=== PATIENT | male | born 1975 | race Caucasian/White ===

== ENCOUNTER 2018-09-29 14:13 | Emergency (ER) | payer BC ==
[2018-09-29 15:21] LABS: #Basophils 0.1 thou/uL (0.0-0.2); #Lymphocytes 1.2 thou/uL (1.20-3.40); #Monocytes 0.7 thou/uL (0.11-0.59); #Neutrophils 5.4 thou/uL (1.40-6.50); %Basophils 0.8 % (0.0-1.0); %Eosinophils 0.6 % (0.0-10.0); %Lymphocytes 16.3 % (21.0-51.0); %Neutrophils 72.3 % (42.0-75.0); Hemoglobin 14.6 g/dL (14.0-18.0); Mean Corpuscular HGB CONC 31.7 g/dL (32.0-36.0); Mean Corpuscular Hemoglobin 29.1 pg (27.0-31.0); Mean Corpuscular Volume 91.8 fL (78.0-98.0); Mean Platelet Volume 7.1 fL (7.4-10.4); Platelet Count 220 thou/uL (130-400); RBC Distribution Width 12.5 % (11.5-14.5); Red Blood Cell (RBC) Count 5.01 mill/uL (4.70-6.10); White Blood Cell (WBC) Count 7.4 thou/uL (4.8-10.8)
[2018-09-29 15:21] LABS: Bilirubin Negative (Negative); Blood, Urine Negative (Negative); Clarity Clear (Clear); Glucose, Urine (Dipstick) Negative (Negative); Leukocyte Negative (Negative); Nitrite Negative (Negative); Protein, Urine (Dipstick) Negative (Neg-Trace); Urobilinogen 0.2 mg/dL (0.2-1.0)
[2018-09-29 15:25] LABS: Specific Gravity, Urine 1.004 (1.002-1.036)
[2018-09-29 15:30] LABS: PTT 25.2 SEC (22.9-36.1); Prothrombin Time 13.4 SEC (12.0-14.7)
[2018-09-29 15:39] LABS: ALT (SGPT) 1648 U/L (8-55); AST (SGOT) 470 U/L (5-34); Albumin 4.5 g/dL (3.5-5.0); Alkaline Phosphatase 111 U/L (40-150); Anion Gap 15 mmol/L (10-20); BUN (Urea Nitrogen) 9 mg/dL (8.9-20.6); Bilirubin, Total 4.6 mg/dL (0.2-1.2); Calc. Creatinine Clearance 0 mL/min (70-130); Calcium 9.9 mg/dL (7.8-10.44); Carbon Dioxide 25 mmol/L (22-29); Chloride 103 mmol/L (98-107); Estimated GFR-MDRD 86; Globulin 2.7 g/dL (2.4-3.5); Glucose 108 mg/dL (70-105); Potassium 4.1 mmol/L (3.5-5.1); Protein, Total 7.2 g/dL (6.0-8.3); Sodium 139 mmol/L (136-145)
--- NOTE | 2018-09-29 15:58 | ULT ---
RIGHT UPPER QUADRANT ULTRASOUND: Date: 09/29/18 INDICATION: Abdominal and epigastric pain with elevated liver function tests. FINDINGS: The patient is post cholecystectomy. The common duct is normal caliber, measured at 2.0 mm. The liver is mildly echogenic, suggesting mild fatty infiltration. No focal liver mass lesion identified. Panc reas is obscured. The right kidney appears unremarkable. IMPRESSION: Post cholecystectomy. No acute findings. POS: [facility]
[2018-09-29 16:45] LABS: HBCM Index 0.06 S/CO (0-0.79); Hep A IgM AB Non-Reactive (NonReactive); Hep A IgM S/CO 0.13 S/CO (0-0.79); Hep B Surf Ag Non-Reactive S/CO (NonReactive); Hep C IgG Ab Non-Reactive (NonReactive); Hep C Index 0.14 S/CO (0-0.79); Hepatitis B Core IgM Abs Non-Reactive (NonReactive)
[2018-09-29 17:50] LABS: Follow-up Chemistry Comp? YES; Follow-up Result - Chemistry REPORT FAXED
== END 2018-09-29 16:35 | disposition home or self-care (01) ==
LOC: SCSER 14:13
DX: R74.8 Abnormal levels of other serum enzymes (principal)
CPT/HCPCS: 76705; 80053; 80074; 81003; 85025; 85610; 85730

== ENCOUNTER 2018-10-01 10:43 | Outpatient (CLI) | payer BC ==
--- NOTE | 2018-10-01 12:12 | ULT ---
FAbdominal ultrasound: 10/01/2018 COMPARISON: Right upper quadrant ultrasound 09/29/2018 HISTORY: Abdominal pain TECHNIQUE: Multiplanar grayscale sonographic imaging of the abdomen provided. FINDINGS: The pancreas is not well seen secondary to bowel gas. The imaged IVC and aorta appear gross ly unremarkable. The hepatic parenchyma is heterogeneous and echogenic, suggesting possible steatosis. The gallbladder is surgically absent. The director social reports a negative Alfredo's sign. The common bile duct measure s 4 mm, within normal limits. Right kidney measures 10.8 cm in craniocaudal dimension and demonstrates no evidence for stone, hydro nephrosis, or mass lesion. Left kidney measures 10.6 cm in craniocaudal dimension and demonstrates no evidence for stone, hydron ephrosis, or mass lesion. Spleen measures up to 9.8 cm, within normal limits. IMPRESSION: No acute findings.
== END 2018-10-01 10:44 | disposition home or self-care (01) ==
LOC: SCSULT 10:43
PROVIDERS: ATTEND Family Medicine
DX: R10.13 Epigastric pain (principal)
CPT/HCPCS: 76700

== ENCOUNTER 2019-04-04 16:00 | Outpatient (CLI) | payer BC | END 2019-04-04 16:01 | disposition home or self-care (01) | LOC: SLEEPLAB 16:00 | PROVIDERS: ATTEND Family Medicine | DX: G47.33 Obstructive sleep apnea (adult) (pediatric) (principal); R53.83 Other fatigue; R06.83 Snoring; G47.00 Insomnia, unspecified | CPT/HCPCS: 95806 ==